=== PATIENT | female | born 1975 | race Caucasian/White ===

== ENCOUNTER 2021-09-14 10:31 | Outpatient (CLI) | payer OTHER, SELFPAY | END 2021-09-14 10:32 | disposition home or self-care (01) | LOC: ANHBWCAUD 10:32 | DX: H93.12 Tinnitus, left ear (principal); H90.3 Sensorineural hearing loss, bilateral | CPT/HCPCS: 92557; 92567 ==

== ENCOUNTER 2022-03-18 08:15 | Emergency (ER) | payer OTHER, SELFPAY ==
--- NOTE | 2022-03-18 08:19 | ED.FEMALEGU ---
HPI - Female Genitourinary General Chief complaint: Urogenital-Female Stated complaint: uti and stiff neck Time Seen by Provider: 03/18/22 08:19 Source: patient and RN notes reviewed History of Present Illness HPI Narrative: Patient is a 46-year-old female who presents the urgent care with complaints of possible UTI with urinary frequency, bladder spasms, dysuria for the last 2 days. Patient denies any hematuria, fever, nausea, vomiting or abdominal pain. Patient has been taking Azo with mild relief. Patient also reports of a right-sided neck strain that she woke up with today. Patient has taken ibuprofen. No other acute complaints. No acute distress noted. Patient aware of the plan of care. Some parts of this dictation were generated by voice recognition software and may contain typographical and/or grammatical inaccuracies. Related Data Home Medications Medication Instructions Recorded Confirmed phenazopyridine 95 mg tablet 95 mg PO TID PRN Urinary Retention 03/18/22 03/18/22 Allergies Allergy/AdvReac Type Severity Reaction Status Date / Time No Known Allergies Allergy Verified 03/18/22 08:39 Review of Systems Review of Systems: CONSTITUTIONAL: Denies fever, chills, or sweats. EYES: Denies visual changes, redness, or discharge. ENT: Denies rhinorrhea, congestion, sore throat, or otalgia. CARDIOVASCULAR: Denies chest pain, palpitations, or edema. RESPIRATORY: Denies cough or dyspnea. GASTROINTESTINAL: Denies abdominal pain, nausea, vomiting, or diarrhea. GENITOURINARY: Reports of dysuria, urgency, frequency and bladder spasms SKIN: Denies rash or itching. MUSCULOSKELETAL: Denies back pain, joint pain, or myalgia. NEUROLOGIC: Denies headache, numbness, or weakness. All other systems reviewed are negative, except as documented in HPI. PMFSH Comments At the time of my signature, I reviewed and agree with the nursing past medical, surgical, social, and family history. There is no relevant family history pertinent to the patient complaint. Exam Narrative: GENERAL: This is a well-nourished, well-developed patient, in no apparent distress. HEAD: normocephalic, atraumatic. EYES: PERRL. Sclera clear/white. Vision is grossly intact. EARS: External ears normal NOSE: External nose normal with no obvious nasal discharge, nares without redness, no rhinorrhea. THROAT: Mucous membranes moist NECK: Neck supple, exacerbated pain with right flexion. Diffuse right cervical tenderness. No crepitus or step-off to the cervical spine. No tenderness to the cervical spine. Head tilt and chin tuck within normal limits CARDIOVASCULAR: Regular rate and rhythm without murmurs, gallops, or rubs. RESPIRATORY: Clear to auscultation. Breath sounds equal bilaterally. No wheezes, rales, or rhonchi. GASTROINTESTINAL: Abdomen soft, non-tender, nondistended. Bowel sounds are active. SKIN: warm, intact with no suspicious lesions or rash, good texture and turgor. NEURO: awake, alert, and oriented to person, place and time. There were no obvious focal neurologic abnormalities. EXTREMITIES: No clubbing, cyanosis, or edema. BACK: Negative bilateral CVA tenderness Course Course Level of Care: Express Care Visit Vital Signs Vital signs: Vital Signs Temperature 97.8 F 03/18/22 08:20 Pulse Rate 77 03/18/22 08:20 Respiratory Rate 16 03/18/22 08:20 Blood Pressure 158/71 H 03/18/22 08:20 Pulse Oximetry 100 03/18/22 08:20 Oxygen Delivery Room Air 03/18/22 08:20 Temperature 97.8 F 03/18/22 08:20 Pulse Rate 77 03/18/22 08:20 Respiratory Rate 16 03/18/22 08:20 Blood Pressure 158/71 H 03/18/22 08:20 Pulse Oximetry 100 03/18/22 08:20 Oxygen Delivery Room Air 03/18/22 08:20 Reviewed-patient is informed that they may have pre-hypertension or hypertension based on a blood pressure reading in the department. I recommend the patient call the primary care provider listed on their discharge instructions or a physician of
[2022-03-18 08:20] VITALS: BP 158/71; PULSE 77; RESP 16; TEMP 36.6; O2SAT 100
== END 2022-03-18 08:55 | disposition home or self-care (01) ==
PROVIDERS: Emergency Provider Nurse Practitioner Family; PCP Nurse Practitioner Adult Health
DX: N39.0 Urinary tract infection, site not specified (principal); S16.1XXA Strain of muscle, fascia and tendon at neck level, initial encounter; X58.XXXA Exposure to other specified factors, initial encounter
CPT/HCPCS: 81003; 87077; 87086; 87186; 99213; G0463

== ENCOUNTER 2023-04-24 15:50 | Emergency (ER) | payer OTHER, SELFPAY ==
[2023-04-24 16:06] VITALS: BP 131/77; PULSE 89; RESP 16; TEMP 36.5; O2SAT 100
--- NOTE | 2023-04-24 16:23 | ED.FEMALEGU ---
HPI - Female Genitourinary General Chief complaint: Urogenital-Female Stated complaint: Urinary Problem Time Seen by Provider: 04/24/23 16:23 Source: patient Mode of arrival: ambulatory Limitations: no limitations History of Present Illness HPI Narrative: 48-year-old female presents with complaint of urinary frequency, urgency, dysuria for 2 days. Afebrile. Patient reports history of prolapsed bladder and uterus. 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 Recently gave her a pessary but patient states that the pessary is painful. His going back for an appointment May 04 to refill it the past area. All systems reviewed and negative except as noted above. Related Data Allergies Allergy/AdvReac Type Severity Reaction Status Date / Time No Known Allergies Allergy Verified 03/18/22 08:39 Review of Systems Review of Systems: CONSTITUTIONAL: Denies fever, chills, or sweats. EYES: Denies visual changes, redness, or discharge. ENT: Denies rhinorrhea, congestion, sore throat, or otalgia. CARDIOVASCULAR: Denies chest pain, palpitations, or edema. RESPIRATORY: Denies cough or dyspnea. GASTROINTESTINAL: Denies abdominal pain, nausea, vomiting, or diarrhea. GENITOURINARY: Reports dysuria, frequency, urgency. Denies hematuria. SKIN: Denies rash or itching. MUSCULOSKELETAL: Denies back pain, joint pain, or myalgia. NEUROLOGIC: Denies headache, numbness, or weakness. PSYCHIATRIC: Denies anxiety or depression. All other systems reviewed are negative, except as documented in HPI. PMFSH Comments At time of signature, agree with nursing past medical, surgical, social and family history. There is no relevant family history pertinent to the presenting complaint. Exam Narrative: GENERAL: This is a well-nourished, well-developed patient, in no apparent distress. HEAD: normocephalic, atraumatic. EYES: PERRL. Sclera clear/white. Vision is grossly intact. EARS: External ears normal NOSE: External nose normal NECK: Neck supple, non-tender without lymphadenopathy, masses or thyromegaly. CARDIOVASCULAR: Regular rate and rhythm without murmurs, gallops, or rubs. RESPIRATORY: Clear to auscultation. Breath sounds equal bilaterally. No wheezes, rales, or rhonchi. SKIN: warm, Dry, intact with no suspicious lesions or rash, good texture and turgor. NEURO: awake, alert, and oriented to person, place and time. There were no obvious focal neurologic abnormalities. EXTREMITIES: No joint tenderness, effusion, or edema noted. Course Course Level of Care: Express Care Visit Vital Signs Vital signs: Vital Signs Temperature 36.5 C 04/24/23 16:06 Pulse Rate 89 04/24/23 16:06 Respiratory Rate 16 04/24/23 16:06 Blood Pressure 131/77 04/24/23 16:06 Pulse Oximetry 100 04/24/23 16:06 Oxygen Delivery Room Air 04/24/23 16:06 Temperature 36.5 C 04/24/23 16:06 Pulse Rate 89 04/24/23 16:06 Respiratory Rate 16 04/24/23 16:06 Blood Pressure 131/77 04/24/23 16:06 Pulse Oximetry 100 04/24/23 16:06 Oxygen Delivery Room Air 04/24/23 16:06 Reviewed MDM - Female Genitourinary Differential Diagnosis Differential diagnosis: Likely urinary tract infection Lab Data Labs: Urine Glucose Negative Reference Range: Negative Urine Bilirubin Negative Reference Range: Negative Urine Ketone Negative Reference Range: Negative Urine Specific [place] 1.025 Reference Range:1.001-1.035 Urine Blood 3+ Reference Range: Negative * * Urine pH 6.5
== END 2023-04-24 16:47 | disposition home or self-care (01) ==
PROVIDERS: Emergency Provider Nurse Practitioner Family
DX: N39.0 Urinary tract infection, site not specified (principal)
CPT/HCPCS: 81003; 87086; 99213; G0463